=== PATIENT | male | born 1965 | race Caucasian/White ===

== ENCOUNTER 2024-11-11 16:49 | Emergency (ER) | payer OTHER ==
[2024-11-11 18:01] LABS: ALT (SGPT) 49 U/L (8-55); AST (SGOT) 34 U/L (5-34); Albumin 4.6 g/dL (3.4-4.8); Alkaline Phosphatase 68 U/L (40-110); Anion Gap 15 mmol/L (10-20); BUN (Urea Nitrogen) 7 mg/dL (8.4-25.7); Calc. Creatinine Clearance 0 mL/min (70-130); Calcium 9.6 mg/dL (7.8-10.44); Carbon Dioxide 25 mmol/L (23-31); Chloride 103 mmol/L (98-107); Estimated GFR 85; Globulin 3.4 g/dL (2.4-3.5); Glucose 106 mg/dL (80-115); Potassium 4.1 mmol/L (3.5-5.1); Sodium 139 mmol/L (136-145)
[2024-11-11 18:03] LABS: #Basophils 0.05 10x3/uL (0.0-0.2); #Eosinophils 0.13 10x3/uL (0.0-0.5); #Monocytes 0.92 10x3/uL (0.0-1.1); #Neutrophils 7.52 10x3/uL (1.5-8.4); %Basophils 0.5 % (0.0-2.0); %Eosinophils 1.3 % (0.0-6.0); %Lymphocytes 10.7 % (18.0-47.0); %Monocytes 9.5 % (0.0-10.0); %Neutrophils 77.4 % (40.0-75.0); Hematocrit 46.2 % (38.8-50.0); Hemoglobin 15.5 g/dL (13.5-17.5); Mean Corpuscular HGB CONC 33.5 g/dL (32.0-36.0); Mean Corpuscular Hemoglobin 30.6 pg (27.0-33.0); Mean Corpuscular Volume 91.3 fL (81.2-95.1); Mean Platelet Volume 10.6 fL (7.4-10.4); Platelet Count 204 10x3/uL (150-450); RBC Distribution Width 13.1 % (11.5-14.5); Red Blood Cell (RBC) Count 5.06 10x6/uL (4.32-5.72); White Blood Cell (WBC) Count 9.7 10x3/uL (3.5-10.5)
[2024-11-11 18:07] LABS: Troponin I Less than 0.010 ng/mL (< 0.028)
[2024-11-11 21:18] LABS: Magnesium 1.9 mg/dL (1.6-2.6)
== END 2024-11-11 21:41 | disposition short-term general hospital (02) ==
LOC: CSHERS 16:49
DX: R55 Syncope and collapse (principal)
CPT/HCPCS: 70450; 71045; 71275; 80053; 83735; 84484; 85025; 93005